=== PATIENT | female | born 1970 | race Caucasian/White ===

== ENCOUNTER 2019-10-31 19:25 | IRF | payer OTHER, SELFPAY ==
--- NOTE | ~2019-10-31 | XR_ITS ---
EXAMINATION: XR hand RT min 3V DATE: 11/02/2019 15:00 INDICATION: Right hand pain. Discoloration. TECHNIQUE: 3 views of right hand were obtained. COMPARISON: None. FINDINGS: Bone alignment is normal. No fracture. There is mild osteoarthritis of second and third met acarpophalangeal joints, first interphalangeal joint, and second through fifth distal interphalangeal joints. IMPRESSION: 1. Mild polyarticular osteoarthritis. Reviewed, dictated and finalized at location A.
--- NOTE | ~2019-10-31 | XR_ITS ---
EXAMINATION: XR forearm LT 2V DATE: 11/02/2019 15:00 INDICATION: Left forearm pain. TECHNIQUE: 2 views of left forearm were obtained. COMPARISON: None. FINDINGS: There is a transverse fracture of the junction of radial head and neck in near-anatomic ali gnment. Joint spaces are normal. There is no elbow joint effusion. IMPRESSION: 1. Nondisplaced transverse fracture of the junction of radial head and neck. 2. Elbow joint effusion. Reviewed, dictated and finalized at location A.
--- NOTE | ~2019-10-31 | XR_ITS ---
EXAMINATION: XR ankle LT 2V DATE: 11/02/2019 15:00 INDICATION: Left ankle edema and pain. TECHNIQUE: 2 views of left ankle were obtained. COMPARISON: None. FINDINGS: There is an avulsion fracture of the distal tip of the fibula. There is well-corticated het erotopic ossification distal to medial and lateral malleoli, likely chronic. Joint spaces are normal. There is ankle soft tissue swelling. IMPRESSION: 1. Age-indeterminant fracture of distal tip of the fibula. Reviewed, dictated and finalized at location A.
--- NOTE | ~2019-10-31 | US_ITS ---
EXAMINATION: US art doppler w press UE BI DATE: 11/02/2019 14:45 INDICATION: Discoloration of the right fingers. TECHNIQUE: Segmental pressures and plethysmographic and Doppler waveforms of the upper extremity isabella israel were obtained. COMPARISON: None. FINDINGS: Right and left brachial artery pressures of 108 mm Hg and 120 mm Hg, respectively, are concordant (no rmal difference <= 30 mmHg). The right finger:brachial systolic pressure ratio is 0.57 (normal > 0.8) . Segmental pressure gradients are increased between the upper arm and wrist. Arterial Doppler wavefo hitesh are noisy at the wrist (normal upstroke < 0.2 s). The left finger:brachial systolic pressure ratio is 0.55. Segmental pressure gradients are increased between the upper arm and wrist. Arterial Doppler waveforms demonstrate normal upstroke. IMPRESSION: 1. Bilateral arterial occlusive disease. Reviewed, dictated and finalized at location A.
--- NOTE | 2019-10-31 19:46 | ADMGEN ---
This patient, Caren Sainz, was admitted to [facility] Room 221-01 at 1925 . Patient/family oriented to hospital policies and general routines including ID bracelet, bed and alarms, visiting hours, pain management, procedures, bathroom and other care routines, personal items, smoking policy, room service/diet, and visiting hours. Valuables list has been completed. Information on how to activate the Rapid Response Team has been discussed. Patient/Family are encouraged to report perceived risks to care and to ask questions if they do not understand what they are told or what they should do.
[2019-10-31 22:00] VITALS: BP 123/46; PULSE 60; RESP 21; TEMP 36.2; O2SAT 100; BMI 34.0
[2019-10-31] MEDS: QUEtiapine FUMARATE 100 MG TABLET 300 MG PO (22:00)
[2019-10-31] MEDS: FAMOTIDINE 20 MG TABLET BY MOUTH (22:33)
[2019-10-31] MEDS: clonazePAM 0.5 MG TABLET 1 MG PO (22:55)
[2019-11-01 05:37] LABS: Basophils Absolute Auto 0.1 K/mm3 (0.0-0.1); Basophils Percent Auto 0.4 % (0.2-1.2); Eosinophils Absolute Auto 0.3 K/mm3 (0-0.3); Eosinophils Percent Auto 1.8 % (0-4.4); Hematocrit 31.5 % (37.0-47.0); Hemoglobin 9.9 g/dL (12.0-15.0); Immature Granulocyte Absolute 0.11 K/mm3 (0.00-0.031); Immature Granulocyte Percent A 0.8 % (0-0.5); Immature Platelet Fraction Pct 9.4 % (0.9-11.2); Lymphocytes Absolute Auto 2.61 K/mm3 (0.9-3.2); Lymphocytes Percent Auto 18.1 % (18.3-44.2); Mean Corpuscular HGB Conc 31.4 g/dl (32-36); Mean Corpuscular Hemoglobin 29.5 pg (26-34); Mean Corpuscular Volume 93.8 fl (80-100); Monocytes Absolute Auto 0.7 K/mm3 (0.1-0.6); Monocytes Percent Auto 5.1 % (2.6-8.5); Neutrophils Absolute Auto 10.6 K/mm3 (1.3-6.7); Neutrophils Percent Auto 73.8 % (45.5-73.1); Red Blood Count 3.36 M/mm3 (4.2-5.4); Red Cell Distribution Width 15.2 % (11.5-14.5); White Blood Count 14.4 K/mm3 (4.5-10.0)
[2019-11-01] MEDS: QUEtiapine FUMARATE 25 MG TABLET 50 MG PO ×2 (05:38→14:02)
[2019-11-01] MEDS: clonazePAM 0.5 MG TABLET 1 MG PO ×3 (05:39→20:08)
[2019-11-01 05:48] LABS: Blood Urea Nitrogen 7 mg/dL (7-17); Calcium 8.6 mg/dL (8.4-10.2); Carbon Dioxide 28 mmol/L (22-30); Chloride 97 mmol/L (98-107); Estimated CRCL calculation 93 ml/min; Estimated Glomerular Filt Rate > 60; Glucose 99 mg/dL (65-105); Potassium 3.6 mmol/L (3.4-5.0); Sodium 133 mmol/L (137-145)
[2019-11-01 05:59] VITALS: BP 118/55; PULSE 85; RESP 18; TEMP 36.9; O2SAT 95
[2019-11-01 06:15] LABS: Large Platelets Present; Platelet Clumps Present; Platelet Estimate Adequate (Adequate)
[2019-11-01 09:10] VITALS: PULSE 86; RESP 20; O2SAT 96
[2019-11-01] MEDS: ENOXAPARIN 40 MG/0.4 ML SYRINGE SUB-Q (09:22)
[2019-11-01] MEDS: ATORVASTATIN 40 MG TABLET PO (09:22)
[2019-11-01] MEDS: DULoxetine HCL 60 MG CAPSULE.DR PO (09:22)
[2019-11-01] MEDS: CHOLECALCIFEROL 1,000 UNIT TABLET 1000 UNITS PO (09:22)
[2019-11-01] MEDS: FAMOTIDINE 20 MG TABLET BY MOUTH ×2 (09:22→20:08)
--- NOTE | 2019-11-01 10:30 | WPDREHABHP ---
H&P: HPI History of Present Illness Chief complaint: Critical ischemia Narrative: Caren Sainz is a 49 year old femaleHISTORY OF PRESENT ILLNESS: The patient's primary rehab impairment category is 54-wuhpxzqkqg-aapap extremity The etiologic diagnosis is right lower extremity critical limb ischemia I saw this patient [id number] on November 01, 2019 at 10:30 a.m. The patient is a 49-year-old woman with a past medical history of bipolar disorder who presented to [facility] on October 21, 2019 with hallucinations and bilateral lower extremity pain worse on the right. She was admitted the hospital and workup revealed leukocytosis of 28,000 with urinary tract infection. The patient was started on IV antibiotics. The venous Doppler study was ordered for the bilateral lower extremity pain. There was evidence of right femoral artery occlusion as well as the right popliteal and tibial vessels. She underwent catheterization lab on October 24, 2019 where she had CVP line placement, aortofemoral angiography and sedated a right femoral angiography with catheter placement a for lytic therapy with tPA. She was taken to ICU and return to the pit laborer on October 25, 2019 for a 2nd look. Vascular surgery was consulted. Revascularization was unsuccessful at the patient underwent right above the knee amputation October 26, [address] Eusebio Escoto. Postoperative the patient has experienced acute postoperative pain and acute blood-loss anemia. Hospitalization has been significant for urinary tract infection treated with levofloxacin acute metabolic encephalopathy thought to be related to the UTI (resolved) bilateral lower extremity edema (improved ) and leukocytosis (trending down) she will be discharged to us on Lovenox for DVT prophylaxis The patient has not traveled outside the [place] and has not been exposed to Coronavirus as best I can tell and she denies any upper or lower extremity symptoms Therapy was initiated at the acute care facility and the patient transferred to us from [facility] on October 31, 2019 on FALLS OR SURGERIES: The patient has had major surgeries in the 100 days prior to admission. They had falls in the past year. They had falls with injury in the past year. PAST MEDICAL HISTORY: allergic rhinitis /a fever, cellulitis, hyperlipidemia, pneumonia, bronchitis, colitis, menorrhagia, ectopic , lumbar disc disease with chronic back pain, headaches, migraines, peripheral neuropathy, anxiety, bipolar disorder, depression PAST SURGICAL HISTORY: vaginal delivery spine surgery in 2008 SOCIAL HISTORY: patient lives with a roommate in a 1 level home with the basement. There are 2 steps to enter to the front door and 14 steps from the basement. The patient was completely independent prior with no assistive device. The roommate is able to assist the patient if needed. The patient has fallen in the past 6 months and had major surgery this admission. Current everyday smoker. THC use daily FAMILY HISTORY: first-degree relatives hypertension PRIOR LEVEL OF FUNCTION: Eating was INDEPENDENT Oral Care was INDEPENDENT Toileting Hygiene was INDEPENDENT Shower/Bathing was INDEPENDENT Upper Body Dressing was INDEPENDENT Lower Body Dressing was INDEPENDENT Donning/Cannon Ball Footwear was INDEPENDENT Rolling Left and Right was INDEPENDENT Sit to Lying was INDEPENDENT Lying to Sitting was INDEPENDENT Sit to Stand was INDEPENDENT Bed to Chair Transfers was INDEPENDENT Toilet Transfers was INDEPENDENT Walking was INDEPENDENT 999 feet with NO DEVICE Wheelchair Mobility was NOT APPLICABLE PRIOR TO ADMISSION Stairs were INDEPENDENT CURRENT LEVEL OF FUNCTION: Eating was SET UP ONLY Oral Care was SET UP ONLY Toileting Hygiene was Shower/Bathing was Upper Body Dressing was Lower Body Dressing was Donning/Cannon Ball Footwear was Rolling Left and Right was Sit to Lying was Lying to Sitting was
[2019-11-01] MEDS: ACETAMINOPHEN 325 MG TABLET 650 MG PO ×2 (11:15→16:02)
[2019-11-01 13:00] VITALS: BMI 34.0
--- NOTE | 2019-11-01 13:30 | PCNSR ---
On 11/01/19, the student, Mikal Salcedo, provided care and completed [facility] documentation on this patient. I have reviewed the student's documentation and agree with the findings.
[2019-11-01 14:00] VITALS: BP 126/69; PULSE 72; RESP 20; TEMP 36.3; O2SAT 100
--- NOTE | 2019-11-01 16:09 | RPD ---
INDIVIDUALIZED PLAN OF CARE FOR Caren Sainz Brief Synthesis of Pre-Admission Screen, Post-Admission Evaluation and Therapy Evaluations: The patient presents to rehab with a right lower extremity critical limb ischemia s/p right AKA. Comorbidities include acute blood loss anemia, acute postoperative pain, leukocytosis, acute metabolic encephalopathy, urinary tract infection, Bipolar 1 disorder, depression, anxiety, hyperlipidemia, and lumbar degenerative disc disease. The patient?s needs will be best met in an intensive program vs. at a lower level of care. The patient requires physician services for medical oversight, management of post-op complications in the setting of present comorbidities, and pain management. Post-op complications have included acute blood loss anemia, leukocytosis, urinary tract infection, and acute postoperative pain. The patient requires nursing services for anticoagulation therapy, DVT prophylactics, infection protection, medication management and education, pressure relief, and wound care. Deficits include: ADLs, Balance, Endurance, Family Training/Education, Mobility, Pain Management, ROM, Safety, Strength, and Transfers. Print Project Manager/Case Management for: Discharge Planning and Patient/Family Counseling Physical Therapy: 5 days per week for 90 minutes. Treatments may include: Therapeutic Exercise, Gait Training, Neuromuscular Re-education, Transfer Training, Community Reintegration, Bed Mobility, Patient/Family Education, Wheelchair Mobility Group Therapy/Concurrent Therapy Rationales: -Improve attention span during functional activities in a distracted environment. -Enhance problem solving and/or adequate judgment skills during functional activities in a distracted environment. -Promote increased safety awareness in a distracted environment to reduce fall risk with functional tasks, transfers, and ambulation to allow a more safe, self-sufficient return to the home environment. -Improve dynamic balance skills to promote safety and independence with functional activities in a distracted environment for maximum gain. Occupational Therapy: 5 days per week for 90 minutes. Treatments may include: Therapeutic Exercise, Therapeutic Activity, Cognitive Training, Self-Care Transfer Training, Community Reintegration, Home Management, Patient/Family Education, Wheelchair Mobility Training, Energy Conservation Training Group Therapy/Concurrent Therapy Rationales: -Allow therapist to observe and teach generalization and carry-over of skills learned in individual therapy. -Enhance problem solving and sequencing skills during therapeutic activities in a distracted environment. -Promote increased safety awareness in a realistic setting to reduce fall risk with functional tasks due to visual and verbal distractions. -Increase functional level with ADLs, ADL transfers and use of adaptive equipment through therapeutic activities with others while promoting safety to allow a more safe, self-sufficient return home. Medical Prognosis: Good Anticipated Length of Stay: 10 days Rehab Goals: Eating Goal: 06-Independent Oral Hygiene Goal: 06-Independent Toileting Hygiene Goal: 06-Independent Shower/Bathe Self Goal: 06-Independent Upper Body Dressing Goal: 06-Independent Lower Body Dressing Goal: 06-Independent Putting On/Taking Off Footwear Goal: 06-Independent Rolling Left and Right Goal: 06-Independent Sit to Lying Goal: 06-Independent Lying to Sitting on Side of Bed Goal: 06-Independent Sit to Stand Goal: 06-Independent Chair/Xye-ps-Pahav Transfer Goal: 06-Independent Toilet Transfer Goal: 06-Independent Car Transfer Goal: 06-Independent Walk 10' Goal: 06-Independent Walk 50' with Two Turns Goal: 06-Independent Walk 150' Goal: 04-Supervision or Touching Assistance Walk 10' on Uneven Surface Goal: 04-Supervision or Touching Assistance 1 Step (Curb) Goal: 04-Supervision or Touching Assistance 4 Steps Goal: 04-Supervision or Touching Assistance
[2019-11-01] MEDS: QUEtiapine FUMARATE 100 MG TABLET 300 MG PO (20:07)
[2019-11-01 22:00] VITALS: BP 135/53; PULSE 70; RESP 18; TEMP 36.6; O2SAT 97
[2019-11-02] MEDS: clonazePAM 0.5 MG TABLET 1 MG PO ×3 (05:43→20:26)
[2019-11-02] MEDS: QUEtiapine FUMARATE 25 MG TABLET 50 MG PO ×2 (05:44→13:46)
[2019-11-02 06:00] VITALS: BP 133/50; PULSE 71; RESP 16; TEMP 36.6; O2SAT 96
[2019-11-02] MEDS: CHOLECALCIFEROL 1,000 UNIT TABLET 1000 UNITS PO (08:33)
[2019-11-02] MEDS: ATORVASTATIN 40 MG TABLET PO (08:33)
[2019-11-02] MEDS: ENOXAPARIN 40 MG/0.4 ML SYRINGE SUB-Q (08:34)
[2019-11-02] MEDS: FAMOTIDINE 20 MG TABLET BY MOUTH ×2 (08:34→20:26)
[2019-11-02] MEDS: DULoxetine HCL 60 MG CAPSULE.DR PO (08:34)
[2019-11-02 14:00] VITALS: BP 116/53; PULSE 76; RESP 20; TEMP 36.3; O2SAT 100
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
[2019-11-02] MEDS: QUEtiapine FUMARATE 100 MG TABLET 300 MG PO (20:26)
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
[2019-11-02 21:48] VITALS: BP 116/52; PULSE 94; RESP 18; TEMP 37.2; O2SAT 94
[2019-11-03 05:30] VITALS: BP 129/63; PULSE 70; RESP 18; TEMP 36.4; O2SAT 95
[2019-11-03 05:43] LABS: Basophils Absolute Auto 0.1 K/mm3 (0.0-0.1); Basophils Percent Auto 0.6 % (0.2-1.2); Eosinophils Absolute Auto 0.3 K/mm3 (0-0.3); Eosinophils Percent Auto 3.6 % (0-4.4); Hemoglobin 9.1 g/dL (12.0-15.0); Immature Granulocyte Absolute 0.04 K/mm3 (0.00-0.031); Immature Granulocyte Percent A 0.5 % (0-0.5); Lymphocytes Absolute Auto 2.96 K/mm3 (0.9-3.2); Lymphocytes Percent Auto 34.8 % (18.3-44.2); Mean Corpuscular HGB Conc 31.4 g/dl (32-36); Mean Corpuscular Hemoglobin 29.6 pg (26-34); Mean Corpuscular Volume 94.5 fl (80-100); Mean Platelet Volume 9.7 fl (7.4-10.4); Monocytes Absolute Auto 0.7 K/mm3 (0.1-0.6); Monocytes Percent Auto 8.7 % (2.6-8.5); Neutrophils Absolute Auto 4.4 K/mm3 (1.3-6.7); Neutrophils Percent Auto 51.8 % (45.5-73.1); Platelet Count Result 519 k/mm3 (150-375); Red Blood Count 3.07 M/mm3 (4.2-5.4); Red Cell Distribution Width 15.5 % (11.5-14.5); White Blood Count 8.5 K/mm3 (4.5-10.0)
[2019-11-03 05:50] LABS: Alanine Aminotransferase 22 U/L (4-35); Albumin Level 3.3 g/dL (3.5-5.1); Alkaline Phosphatase 98 U/L (38-126); Aspartate Amino Transferase 24 U/L (14-36); Bilirubin,Total 0.3 mg/dL (0.2-1.3); Blood Urea Nitrogen 7 mg/dL (7-17); Calcium 8.7 mg/dL (8.4-10.2); Carbon Dioxide 29 mmol/L (22-30); Chloride 98 mmol/L (98-107); Estimated CRCL calculation 82 ml/min; Estimated Glomerular Filt Rate > 60; Glucose 101 mg/dL (65-105); Potassium 3.6 mmol/L (3.4-5.0); Sodium 134 mmol/L (137-145)
[2019-11-03] MEDS: QUEtiapine FUMARATE 25 MG TABLET 50 MG PO ×2 (06:21→13:26)
[2019-11-03] MEDS: clonazePAM 0.5 MG TABLET 1 MG PO ×2 (06:22→13:26)
--- NOTE | 2019-11-03 07:00 | PCOTNOTE ---
Attempted to see Patient at this time this A.M. Per RN, do not see Patient until we get updated orders from the doctor. Patient has a decline in medical status, and may need additional services.
[2019-11-03] MEDS: ATORVASTATIN 40 MG TABLET PO (09:08)
[2019-11-03] MEDS: DULoxetine HCL 60 MG CAPSULE.DR PO (09:08)
[2019-11-03] MEDS: CHOLECALCIFEROL 1,000 UNIT TABLET 1000 UNITS PO (09:08)
[2019-11-03] MEDS: FAMOTIDINE 20 MG TABLET BY MOUTH (09:09)
[2019-11-03] MEDS: ENOXAPARIN 40 MG/0.4 ML SYRINGE SUB-Q (09:09)
--- NOTE | 2019-11-03 10:52 | PCPTNOTE ---
Caren Sainz was evaluated for a wheeled walker on 11/03/2019 by this physical therapist assistant store manager trainee. The wheeled walker will resolve patient's mobility limitations and will be used for ADL's within the home. The patient can safely use the wheeled walker. ?The wheeled walker will resolve the patient?s mobility deficits, including impaired balance, strength and endurance.
[2019-11-03 14:00] VITALS: BP 116/57; PULSE 88; RESP 20; TEMP 36.5; O2SAT 100
--- NOTE | 2019-11-06 15:25 | PM.DS ---
DS: Admitting Diagnosis Admitting Diagnosis Admitting Diagnosis: Other disorder of circulatory system DS: Discharge Diagnosis Discharge Diagnosis (1) Anxiety and depression: Code(s): F41.9 - Anxiety disorder, unspecified; F32.9 - Major depressive disorder, single episode, unspecified Status: Chronic (2) Peripheral neuropathy: Code(s): G62.9 - Polyneuropathy, unspecified Status: Chronic (3) Hyperlipidemia: Code(s): E78.5 - Hyperlipidemia, unspecified Status: Chronic (4) Peripheral artery disease: Code(s): I73.9 - Peripheral vascular disease, unspecified Status: Acute (5) Chronic low back pain: Code(s): M54.5 - Low back pain; G89.29 - Other chronic pain Status: Acute (6) Migraines: Code(s): G43.909 - Migraine, unspecified, not intractable, without status migrainosus Status: Acute (7) Peripheral vascular disease: Code(s): I73.9 - Peripheral vascular disease, unspecified Status: Acute (8) Tobacco abuse: Code(s): Z72.0 - Tobacco use Status: Acute (9) Injury of left ankle: Code(s): S99.912A - Unspecified injury of left ankle, initial encounter Status: Acute (10) Injury of left upper arm: Code(s): S49.92XA - Unspecified injury of left shoulder and upper arm, initial encounter Status: Acute (11) DVT prophylaxis: Code(s): Z29.9 - Encounter for prophylactic measures, unspecified Status: Acute (12) Bipolar disorder: Code(s): F31.9 - Bipolar disorder, unspecified Status: Acute (13) Critical ischemia of extremity with history of revascularization of same extremity: Code(s): I99.8 - Other disorder of circulatory system; Z95.9 - Presence of cardiac and vascular implant and graft, unspecified Status: Acute (14) History of aorto-femoral bypass: Code(s): Z95.828 - Presence of other vascular implants and grafts Status: Acute DS: Summary Hospital Course Reason for hospitalization: the patient was admitted with multiple medical issues as mentioned above she did come with the evidence of the ischemic disease of her hand which she was telling us that it was present when she had the surgery done here we did the arterial Doppler and found peripheral vascular disease of the upper extremities also Dr. Echeverria went ahead and called Dr. nunn who accepted the patient and the patient was transferred to the vascular surgeon who had operated on her lower extremities Hospital Course: beside mentioned above the hospital course was unremarkable Time Spent with Patient Time attestation: Total time spent providing and/or coordinating discharge services: Exam Const: General: comfortable and no acute distress HENMT: General nose exam: Normal nares present Mouth: Yes dry mucous membranes Eyes: General: appearance normal, both eyes and all related structures Neck: Neck: supple and no JVD Resp: Effort & Inspection: normal respiratory effort Auscultation: clear to auscultation bilaterally Cardio: Rate: regular rate Rhythm: regular rhythm GI: GI Palp: Yes Soft to palpation Auscultation: normal bowel sounds Skin: General skin exam: normal color and no rashes or lesions noted Neuro: Other: right above the knee amputation mentally alert and oriented cranial examination normal and also the evidence of the ski me of the right hand which was present even before she was transferred to us any even before she has the right above the knee amputation Extrem: Other: ischemic fingers of the right hand and also evidence of the right [id number] amputation Psych: Mental Status: mental status grossly normal Discharge Plan Discharge Attending physician on discharge: Tod Cobos Consulting providers: Fozia Rebolledo Discharging Clinician: Shon Vincent Anticipated Discharge Date/Time: 11/03/19 11:45 Patient Disposition: Acute Care Hospital Activity: other - see di
== END 2019-11-03 18:30 | disposition short-term general hospital (02) | DRG 560 ==
PROVIDERS: Nurse Practitioner; Admitting Provider Psychiatry & Neurology Neurology; Visit Provider Psychiatry & Neurology Neurology
DX: Z47.81 Encounter for orthopedic aftercare following surgical amputation (principal); D62 Acute posthemorrhagic anemia; Z89.611 Acquired absence of right leg above knee; I70.298 Other atherosclerosis of native arteries of extremities, other extremity; L89.159 Pressure ulcer of sacral region, unspecified stage; S82.492D Other fracture of shaft of left fibula, subsequent encounter for closed fracture with routine healing; S52.125D Nondisplaced fracture of head of left radius, subsequent encounter for closed fracture with routine healing; R23.4 Changes in skin texture; F31.9 Bipolar disorder, unspecified; F41.8 Other specified anxiety disorders; E78.5 Hyperlipidemia, unspecified; M51.36 Other intervertebral disc degeneration, lumbar region; G89.29 Other chronic pain; M54.5 Low back pain; G43.909 Migraine, unspecified, not intractable, without status migrainosus; F12.90 Cannabis use, unspecified, uncomplicated; F17.210 Nicotine dependence, cigarettes, uncomplicated; M19.041 Primary osteoarthritis, right hand; Z95.9 Presence of cardiac and vascular implant and graft, unspecified; V18.0XXD Pedal cycle driver injured in noncollision transport accident in nontraffic accident, subsequent encounter
CPT/HCPCS: 36415; 73090; 73130; 73600; 80048; 80053; 85025; 85055; 93923; 97110; 97116; 97161; 97166; 97530; 97535; 97542; A9270; J1650

== ENCOUNTER 2019-11-16 18:20 | IRF | payer OTHER, SELFPAY ==
--- NOTE | 2019-11-16 18:40 | PC.NURSE ---
This patient, Caren Sainz, was admitted to [facility] Room 223-02. Patient/family oriented to hospital policies and general routines including ID bracelet, bed and alarms, visiting hours, pain management, procedures, bathroom and other care routines, personal items, smoking policy, room service/diet, and visiting hours. Valuables list has been completed. Information on how to activate the Rapid Response Team has been discussed. Patient/Family are encouraged to report perceived risks to care and to ask questions if they do not understand what they are told or what they should do.
[2019-11-16 18:49] VITALS: BMI 30.7
[2019-11-16 18:50] VITALS: BP 116/54; PULSE 68; RESP 20; TEMP 36; O2SAT 97
[2019-11-16 20:19] VITALS: BP 135/39; PULSE 65; RESP 18; TEMP 35.9; O2SAT 99
[2019-11-16] MEDS: QUEtiapine FUMARATE 100 MG TABLET 300 MG PO (20:25)
[2019-11-16] MEDS: APIXABAN 5 MG TABLET PO (20:25)
[2019-11-16] MEDS: FAMOTIDINE 20 MG TABLET BY MOUTH (20:25)
[2019-11-16] MEDS: DULoxetine HCL 60 MG CAPSULE.DR PO (22:13)
[2019-11-17 04:48] LABS: Basophils Absolute Auto 0.1 K/mm3 (0.0-0.1); Basophils Percent Auto 0.7 % (0.2-1.2); Eosinophils Absolute Auto 0.4 K/mm3 (0-0.3); Eosinophils Percent Auto 5.1 % (0-4.4); Hematocrit 31.7 % (37.0-47.0); Hemoglobin 9.9 g/dL (12.0-15.0); Immature Granulocyte Absolute 0.02 K/mm3 (0.00-0.031); Immature Granulocyte Percent A 0.3 % (0-0.5); Lymphocytes Absolute Auto 2.66 K/mm3 (0.9-3.2); Lymphocytes Percent Auto 36.7 % (18.3-44.2); Mean Corpuscular HGB Conc 31.2 g/dl (32-36); Mean Corpuscular Hemoglobin 28.5 pg (26-34); Mean Corpuscular Volume 91.4 fl (80-100); Mean Platelet Volume 9.6 fl (7.4-10.4); Monocytes Absolute Auto 0.6 K/mm3 (0.1-0.6); Monocytes Percent Auto 8.1 % (2.6-8.5); Neutrophils Absolute Auto 3.6 K/mm3 (1.3-6.7); Neutrophils Percent Auto 49.1 % (45.5-73.1); Platelet Count Result 272 k/mm3 (150-375); Red Blood Count 3.47 M/mm3 (4.2-5.4); Red Cell Distribution Width 14.4 % (11.5-14.5); White Blood Count 7.3 K/mm3 (4.5-10.0)
[2019-11-17 05:02] LABS: Anion Gap 11.5 mmol/L (7-16); Blood Urea Nitrogen 9 mg/dL (7-17); Calcium 9.4 mg/dL (8.4-10.2); Carbon Dioxide 27 mmol/L (22-30); Chloride 101 mmol/L (98-107); Estimated CRCL calculation 78 ml/min; Estimated Glomerular Filt Rate > 60; Glucose 113 mg/dL (65-105); Potassium 3.5 mmol/L (3.4-5.0); Sodium 136 mmol/L (137-145)
[2019-11-17] MEDS: QUEtiapine FUMARATE 25 MG TABLET 50 MG PO ×2 (05:46→14:15)
[2019-11-17 06:00] VITALS: BP 143/49; PULSE 70; RESP 18; TEMP 36.6; O2SAT 98
[2019-11-17] MEDS: APIXABAN 5 MG TABLET PO ×2 (09:09→20:13)
[2019-11-17] MEDS: DULoxetine HCL 60 MG CAPSULE.DR PO ×2 (09:09→20:13)
[2019-11-17] MEDS: ATORVASTATIN 40 MG TABLET PO (09:09)
[2019-11-17] MEDS: FAMOTIDINE 20 MG TABLET BY MOUTH ×2 (09:09→20:13)
[2019-11-17] MEDS: CHOLECALCIFEROL 1,000 UNIT TABLET 1000 UNITS PO (09:09)
[2019-11-17] MEDS: clonazePAM 0.5 MG TABLET 1 MG PO ×3 (09:09→17:26)
[2019-11-17 14:00] VITALS: BP 138/56; PULSE 64; RESP 20; TEMP 36.8; O2SAT 98
--- NOTE | 2019-11-17 14:21 | REHAB_ITS ---
DATE OF SERVICE: 11/17/2019 The patient's primary rehab impairment category is amputation of lower extremity, etiological diagnosis right lower extremity critical limb ischemia. The patient was seen [id number] on 11/17/2019 at 11 a.m. HISTORY OF PRESENT ILLNESS: A 49-year-old, right-handed female, presented to [facility] Emergency Room on 10/21/2019 with hallucination and bilateral lower extremity pain, worse on the right side. She was admitted to the hospital and workup revealed leukocytosis with urinary tract infection. She was started on IV antibiotics. A venous Doppler study was ordered for the bilateral lower extremity pain. There was evidence of right femoral artery occlusion as well as the right popliteal and tibial artery occlusion. She was sent to [facility] on 10/24/2019, where she had a CVP line placement and aortofemoral angiography was carried out with catheter placement for lytic therapy with tPA. She was taken to ICU and returned to [facility] on 10/25/2019 for second-look. Vascular Surgery was consulted. Revascularization was unsuccessful, and the patient underwent a right above knee amputation on 10/26/[address] Eusebio Escoto. Postoperatively, the patient has experienced acute postoperative pain and acute blood loss anemia. Hospitalization had been significant for urinary tract infection with levofloxacin, acute metabolic encephalopathy thought to be related to the UTI and bilateral lower extremity edema, which was improving and leukocytosis, which was definitely downtrending. She was discharged to rehab on 10/31/2019. While at the rehab, the patient was noted to have discoloration to her fingers. A Doppler study was performed on 11/02/2019, that revealed peripheral vascular disease of the right upper extremity and bilateral arterial occlusive disease. She was discharged from rehab to [facility] on 11/03/2019, with ischemic and gangrenous changes of right 1st and 4th finger and right thumb demarcating. Vascular Surgery was consulted, and the patient underwent right extremity arteriography. On 11/05/2019, the patient underwent a right brachial, radial, and ulnar thrombectomy and repair of the right brachial artery with a bovine pericardial patch. Her hand remained well perfused following this procedure. On 11/10/2019, she underwent a disarticulation of the right 4th PIP with Dr. Stacy. Postoperatively, she had experienced acute postoperative pain, acute blood loss resulting in anemia, but her hand was well perfused and healing was well. She was discharged to rehab on apixaban and admitted here on 11/15/2019. The patient has not traveled outside the [place] or had contact with someone who is ill that has traveled outside the [place] in the past 21 days. The patient has had no travel to an area of the [place] that is experiencing known transmission of the coronavirus and has not had close personal contact with anyone that has. The patient does not have a fever, has not been experiencing any lower respiratory illness symptoms. Therapy was initiated at the acute care facility and the patient was transferred to us from [facility] on 11/16/2019. SURGERY OR FALL: The patient has had major surgery in the 100 days prior to admission. The patient has falls in the past year. The patient has fall with injury in the past year as well. PAST MEDICAL HISTORY: Allergic rhinitis, hay fever, cellulitis, hyperlipidemia, pneumonia, bronchitis, colitis, menorrhagia, ectopic , lumbar disk disease with chronic back pain, headaches, migraines, peripheral neuropathy, anxiety, and bipolar depression. PAST SURGICAL HISTORY: Vaginal delivery, spine surgery in 2019, right above-knee amputation 10/17/2019. SOCIAL HISTORY: The patient lives with her roommate in a two-story h
--- NOTE | 2019-11-17 14:36 | WPDCN ---
Assessment and Plan Assessment and plan (1) Peripheral artery disease: Code(s): I73.9 - Peripheral vascular disease, unspecified Status: Acute (2) Tobacco abuse: Code(s): Z72.0 - Tobacco use Status: Acute (3) Critical ischemia of extremity with history of revascularization of same extremity: Onset Date: Unknown Code(s): I99.8 - Other disorder of circulatory system; Z95.9 - Presence of cardiac and vascular implant and graft, unspecified Status: Acute Assessment and Plan: Ischemic changes to right 1st, 4th and 5th digits. Tissue necrosis with dry eschar to right thumb pad. S/P recent amputation of the right 4th finger, healing satisfactorily. S/P angioplasty to right brachial and radial and ulnar arteries with increased inflow. Tolerable ischemic limb pain. . Additional Plan Will try Nitro Bid to thumb. Follow while in [facility]. HPI Data of Consult Date/Time: 11/17/19 14:36 Requesting Physician: Tod Cobos MD Primary Care Provider: Collins Hicks, Consult Narrative Narrative: Caren Sainz is a pleasant, informative 49 year old female transferred to the [facility] for rehabilitation after undergoing a right AKA by Dr. Escoto at [facility]. the cora have been removed and the site looks excellent. Her 2nd problem relates to ischemia of the right upper extremity. approximately 2 weeks ago she underwent embolectomy of the right brachial and radial and ulnar arteries by Dr. Escoto. This was necessary when she developed ischemic changes to her right thumb, ring finger and small finger. These are distal changes. The ring finger however was the worst and she subsequently underwent an amputation through the proximal interphalangeal joint by Dr. Stacy three or 4 days ago. That site still has stitches. The volar flap is slightly dusky. There is a 3 mm brown eschar on the pad of the 5th finger. There is a 13 x 12 mm hard black eschar on the pad of the thumb. The patient is not aware that anything about her hand has changed for the better following the embolectomy. However pulses are dopplerable now at the radial and ulnar wrist. Her hand hurts and she is particularly tender at the thumb eschar. There are splinter hemorrhages at several nails. The hand has normal pink skin color. The pain she senses seems to be ischemic pain. It does not feel cold to touch. She feels better if she keeps it warm under her blanket. She has been a smoker up until approximately 30 days ago around the time of her right AKA amputation. There was no arterial study as far she knows regarding her right leg. She said she had a lot of pain in the leg. There was an arterial Doppler and angiogram of the right upper extremity indicating occlusion of the arterial supply between the arm and the wrist. [facility] Past Medical History Medical History (Updated 11/17/19 @ 14:56 by Junior Arvizu MD) Anxiety and depression Bipolar disorder Chronic low back pain Critical ischemia of extremity with history of revascularization of same extremity (Unknown) DVT prophylaxis Hyperlipidemia Migraines Peripheral neuropathy Peripheral vascular disease Tobacco abuse Surgical History Surgical History (Updated 11/02/19 @ 20:47 by Fozia Rebolledo NP) H/O Spinal surgery ACDF Social History Social History Smoking packs per day: 1 Smoking cigarettes per day: 20.0 Smoking status: Current every day smoker Tobacco type: cigarettes Second hand tobacco smoke exposure: Yes Alcohol intake: never Substance use: current Substance use type: marijuana, sedatives, opiates and prescription drug Gender identity (if verbalized by the patient): Female Spiritual care concerns: No Meds Home Medications and Allergies Home Medications Medication Instructions Recorded Confirmed Type acetaminophen [Tylenol] 650 mg PO Q4H PRN 10/31/19
[2019-11-17] MEDS: NITROGLYCERIN OINTMENT 1 INCH DOSE 0.5 INCH TRANSDERM (17:26)
[2019-11-17] MEDS: QUEtiapine FUMARATE 100 MG TABLET 300 MG PO (20:13)
[2019-11-17 20:58] VITALS: BP 102/56; PULSE 78; RESP 18; TEMP 36.2; O2SAT 92
[2019-11-18 05:25] VITALS: BP 106/53; PULSE 73; RESP 18; TEMP 35.7; O2SAT 97
[2019-11-18] MEDS: QUEtiapine FUMARATE 25 MG TABLET 50 MG PO ×2 (06:29→14:27)
[2019-11-18] MEDS: NITROGLYCERIN OINTMENT 1 INCH DOSE 0.5 INCH TRANSDERM ×4 (06:32→17:37)
[2019-11-18] MEDS: CHOLECALCIFEROL 1,000 UNIT TABLET 1000 UNITS PO (08:37)
[2019-11-18] MEDS: DULoxetine HCL 60 MG CAPSULE.DR PO ×2 (08:37→20:26)
[2019-11-18] MEDS: ATORVASTATIN 40 MG TABLET PO (08:37)
[2019-11-18] MEDS: APIXABAN 5 MG TABLET PO ×2 (08:37→20:27)
[2019-11-18] MEDS: FAMOTIDINE 20 MG TABLET BY MOUTH ×2 (08:38→20:26)
[2019-11-18] MEDS: clonazePAM 0.5 MG TABLET 1 MG PO ×3 (08:40→17:37)
[2019-11-18 14:00] VITALS: BP 94/60; PULSE 60; RESP 20; TEMP 36.3; O2SAT 98
[2019-11-18 20:15] VITALS: BP 106/52; PULSE 80; RESP 18; TEMP 36.4; O2SAT 100
[2019-11-18] MEDS: QUEtiapine FUMARATE 100 MG TABLET 300 MG PO (20:32)
[2019-11-19 06:00] VITALS: BP 118/63; PULSE 86; RESP 18; TEMP 36.3; O2SAT 96
[2019-11-19] MEDS: QUEtiapine FUMARATE 25 MG TABLET 50 MG PO ×2 (06:10→13:02)
[2019-11-19] MEDS: NITROGLYCERIN OINTMENT 1 INCH DOSE 0.5 INCH TRANSDERM ×4 (06:10→17:44)
[2019-11-19] MEDS: CHOLECALCIFEROL 1,000 UNIT TABLET 1000 UNITS PO (09:10)
[2019-11-19] MEDS: clonazePAM 0.5 MG TABLET 1 MG PO ×3 (09:10→17:44)
[2019-11-19] MEDS: ATORVASTATIN 40 MG TABLET PO (09:10)
[2019-11-19] MEDS: APIXABAN 5 MG TABLET PO ×2 (09:10→20:22)
[2019-11-19] MEDS: DULoxetine HCL 60 MG CAPSULE.DR PO ×2 (09:11→20:22)
[2019-11-19] MEDS: FAMOTIDINE 20 MG TABLET BY MOUTH ×2 (09:11→20:22)
--- NOTE | 2019-11-19 10:31 | RPD ---
INDIVIDUALIZED PLAN OF CARE FOR Caren Sainz Brief Synthesis of Pre-Admission Screen, Post-Admission Evaluation and Therapy Evaluations: The patient presents to rehab with right lower extremity critical limb ischemia. Comorbidities include amputation to right 4th finger, ischemia and gangrenous changes to the right 4th finger and right thumb demarcating, acute blood loss anemia, acute postoperative pain, leukocytosis, acute metabolic encephalopathy, urinary tract infection, Bipolar 1 disorder, depression, anxiety, hyperlipidemia, and lumbar degenerative disc disease. The complexity of the patient's medical management, nursing, and therapy needs require an inpatient rehab hospital stay with a physician-led interdisciplinary team approach. The patient?s needs will be best met in an intensive program vs. at a lower level of care. The patient requires physician services for medical oversight, management of post-op complications in the setting of present comorbidities, and pain management. Post-op complications have included acute blood loss anemia, leukocytosis, urinary tract infection, and acute postoperative pain. The patient requires nursing services for anticoagulation therapy, DVT prophylactics, infection protection, medication management and education, pressure relief, and wound care. Deficits include:ADLs, Balance, Endurance, Family Training/Education, Mobility, Pain Management, ROM, Safety, Strength, and Transfers. Free Lance Artist/Case Management for: Discharge Planning and Patient/Family Counseling Physical Therapy: 5 days per week for 90 minutes. Treatments may include: Therapeutic Exercise, Gait Training, Neuromuscular Re-education, Transfer Training, Community Reintegration, Bed Mobility, Patient/Family Education, Wheelchair Mobility Group Therapy/Concurrent Therapy Rationales: -Improve attention span during functional activities in a distracted environment. -Enhance problem solving and/or adequate judgment skills during functional activities in a distracted environment. -Promote increased safety awareness in a distracted environment to reduce fall risk with functional tasks, transfers, and ambulation to allow a more safe, self-sufficient return to the home environment. -Improve dynamic balance skills to promote safety and independence with functional activities in a distracted environment for maximum gain. Occupational Therapy: 5 days per week for 90 minutes. Treatments may include: Therapeutic Exercise, Therapeutic Activity, Cognitive Training, Self-Care Transfer Training, Community Reintegration, Home Management, Patient/Family Education, Wheelchair Mobility Training, Energy Conservation Training Group Therapy/Concurrent Therapy Rationales: -Allow therapist to observe and teach generalization and carry-over of skills learned in individual therapy. -Enhance problem solving and sequencing skills during therapeutic activities in a distracted environment. -Promote increased safety awareness in a realistic setting to reduce fall risk with functional tasks due to visual and verbal distractions. -Increase functional level with ADLs, ADL transfers and use of adaptive equipment through therapeutic activities with others while promoting safety to allow a more safe, self-sufficient return home. Medical Prognosis: Good Anticipated Length of Stay: 7 days Rehab Goals: Eating Goal: 06-Independent Oral Hygiene Goal: 06-Independent Toileting Hygiene Goal: 06-Independent Shower/Bathe Self Goal: 06-Independent Upper Body Dressing Goal: 06-Independent Lower Body Dressing Goal: 06-Independent Putting On/Taking Off Footwear Goal: 06-Independent Rolling Left and Right Goal: 06-Independent Sit to Lying Goal: 06-Independent Lying to Sitting on Side of Bed Goal: 06-Independent Sit to Stand Goal: 06-Independent Chair/Ycz-ly-Hgpmm Transfer Goal: 06-Independent Toilet Transfer Goal: 06-Independent Car Transfer Goal: 06-Independent Walk 10' Goal: 06-Independent Walk 50' wi
--- NOTE | 2019-11-19 11:56 | WPDNEURORHBP ---
Subjective Date/time seen: seen on 11/18/19at noon documenting today Review of Systems Review of Systems: All systems reviewed & are unremarkable except as noted in HPI and below Functional Status Ambulation Ability Ability to Ambulate 10 Feet: Contact Guard Ambulation Assistive Devices: Walker, Standard Transfers Ability Ability to Transfer In/Out of Chair: Minimum Assistance X 1 Exam Const: General: cooperative, comfortable and well developed Nutritional Appearance: average body habitus Orientation/consciousness: patient oriented x3 Limitations: no limitations HENMT: Head: normal to inspection Ears: hearing grossly normal bilaterally General nose exam: Normal external nose present and No nasal discharge present Face and sinus: normal facial exam Mouth: Yes Normal oral and palatal mucosa present Eyes: General: appearance normal, both eyes and all related structures Neck: Neck: full ROM Resp: Effort & Inspection: normal respiratory effort and able to speak in complete sentences Cardio: Rate: regular rate Rhythm: regular rhythm Skin: General skin exam: no rashes or lesions noted, crusts and scars Lesions: lesion noted Wounds: amputation site (ok) Neuro: General: patient oriented x3 and moves all extremities Cranial nerves: Yes CN's II-XII intact bilaterally, Yes Equal, round and reactive pupils present, Yes Nystagmus not present, Yes Midline tongue present, Yes Normal hearing present and Yes Ability to bilaterally elevate shoulders present Cognition (Neuro): normal cognition Speech: normal speech Gait exam (Neuro): Unable to assess gait Motor exam (neuro): 5/5 motor strength present throughout Sensory Exam: Sensory deficit (Neuro) Extrem: General: normal to inspection and amputation noted Right upper extremity: normal to inspection and Extremity exam: right hand (perfosion) abnormal ROM of finger, no swelling and ecchymosis Left upper extremity: full ROM Right lower extremity: full ROM Psych: Appearance: grossly normal Speech and movement: Normal speech and movement present Affect: normal affect Attitude: cooperative Thought process: Normal thought process present Thought content: Yes Normal thought content present Insight: Fair insight present (Psych) Judgement: Fair judgement present (Psych) Objective Data Vital Signs Vital Signs: Vital Signs - 24 hr 11/18/19 14:00 11/18/19 20:15 11/19/19 06:00 Temperature 36.3 C L 36.4 C L 36.3 C L Pulse Rate 60 80 86 Respiratory Rate 20 18 18 Blood Pressure 94/60 L 106/52 L 118/63 Pulse Oximetry 98 100 96 Intake/Output Intake/Output: Intake & Output 11/16/19 11/17/19 11/18/19 11/19/19 23:59 23:59 23:59 23:59 Intake Total 720 560 240 Balance 720 560 240 Meds/Results Medications: Active Medications Generic Name Dose Route Start Last Admin Trade Name Freq PRN Reason Stop Dose Admin Acetaminophen 650 mg 11/16/19 18:46 Tylenol Tablet PO Q4H PRN Headache Hydrocodone Bitart/Acetaminophen 2 tab 11/18/19 12:01 11/19/19 09:11 [place] 5-325 Mg PO 2 tab Q6H PRN Administration Pain Apixaban 5 mg 11/16/19 21:00 11/19/19 09:10 Eliquis PO 5 mg Q12HR FRANCISCO Administration Atorvastatin Calcium 40 mg 11/17/19 09:00 11/19/19 09:10 Lipitor PO 40 mg DAILY FRANCISCO Administration Clonazepam 1 mg 11/17/19 09:00 11/19/19 09:10 Klonopin Tablet PO 1 mg TID FRANCISCO Administration Duloxetine HCl 60 mg 11/16/19 21:00 11/19/19 09:11 Cymbalta PO 60 mg Q12HR FRANCISCO Administration Famotidine 20 mg 11/16/19 21:00 11/19/19 09:11 Pepcid BY MOUTH 20 mg Q12HR FRANCISCO Administration Nitroglycerin 0.5 inch 11/17/19 18:00 11/19/19 06:10 Nitroglycerin Oint 1 Inch TRANSDERM 0.5 inch Q6HR FRANCISCO Administration Quetiapine Fumarate 50 mg 11/17/19 06:00 11/19/19 06:10 Seroquel PO 50 mg BID@0600,1400 FRANCISCO Administration Quetiapine Fumarate 300 mg 11/16/19 21:00 11/18/19 20:32 Seroquel
[2019-11-19 13:27] VITALS: BMI 30.7
--- NOTE | 2019-11-19 13:47 | PCNSR ---
On 11/19/19, the student, [Mikal Salcedo ], provided care and completed [facility] documentation on this patient. I have reviewed the student's documentation and agree with the findings.
[2019-11-19 14:00] VITALS: BP 111/61; PULSE 84; RESP 20; TEMP 36.1; O2SAT 96
[2019-11-19] MEDS: polyethylene glycoL 3350 17 GM POWD.PACK PO (20:22)
[2019-11-19] MEDS: SENNA/DOCUSATE SODIUM TABLET 2 TAB PO (20:22)
[2019-11-19] MEDS: QUEtiapine FUMARATE 100 MG TABLET 300 MG PO (20:22)
[2019-11-19 21:46] VITALS: BP 127/47; PULSE 102; RESP 18; TEMP 35.2; O2SAT 92
[2019-11-20] MEDS: NITROGLYCERIN OINTMENT 1 INCH DOSE 0.5 INCH TRANSDERM ×5 (00:21→23:57)
[2019-11-20 06:00] VITALS: BP 107/39; PULSE 83; RESP 18; TEMP 35.4; O2SAT 95
[2019-11-20] MEDS: QUEtiapine FUMARATE 25 MG TABLET 50 MG PO ×2 (06:15→14:27)
[2019-11-20] MEDS: APIXABAN 5 MG TABLET PO ×2 (08:01→20:09)
[2019-11-20] MEDS: ATORVASTATIN 40 MG TABLET PO (08:01)
[2019-11-20] MEDS: CHOLECALCIFEROL 1,000 UNIT TABLET 1000 UNITS PO (08:01)
[2019-11-20] MEDS: DULoxetine HCL 60 MG CAPSULE.DR PO ×2 (08:02→20:09)
[2019-11-20] MEDS: FAMOTIDINE 20 MG TABLET BY MOUTH ×2 (08:02→20:09)
[2019-11-20] MEDS: clonazePAM 0.5 MG TABLET 1 MG PO ×3 (08:02→17:13)
[2019-11-20] MEDS: SENNA/DOCUSATE SODIUM TABLET 2 TAB PO ×2 (08:02→20:11)
--- NOTE | 2019-11-20 11:06 | PCPTNOTE ---
Contacted Dr. Escoto's office to clarify weightbearing status for right arm. MD orders are no weightbearing restrictions. Kati Du PT
--- NOTE | 2019-11-20 11:22 | PCPTNOTE ---
Caren Sainz was evaluated for a standard walker on 11/20/2019 by this physical therapist. The standard walker will resolve patient's mobility limitations and will be used for ADL's within the home. The patient can safely use the standard walker. ?The standard walker will resolve the patient?s mobility deficits, including transfers/ADL's/gait. Kati Du PT
--- NOTE | 2019-11-20 11:24 | PCPTNOTE ---
Kati Du PT completed an inpatient rehab wheelchair evaluation on Caren Sainz on 11/20/2019. The patient is unable to safely and independently ambulate household distances due to their current impairments. Their diagnosis is R AKA and right 4th digit amputation, and their impairments include decreased strength, decreased endurance, decreased range of motion, decreased balance, lower extremity weakness, and ataxia. Caren's weight bearing status is [id number] on the right lower leg. The patient demonstrates significant functional mobility limitations that impair their ability to participate in mobility-related activities of daily living (MRADLs), including toileting, feeding, dressing, grooming, and bathing in the customary locations in the home. These limitations cannot be sufficiently resolved by the use of an appropriately fitted cane or walker. It is recommended that the patient utilize a wheelchair for functional mobility within the home in order to facilitate optimal safety, independence and participation in all MRADL's and adequately access their home environment on a regular basis. The patient's home provides adequate access between rooms, maneuvering space, and surfaces to accommodate the recommended wheelchair. The use of a wheelchair for functional mobility is strongly recommended and the patient is receptive to using the wheelchair. The use of this wheelchair will significantly improve the patient's ability to participate in MRADLS and the patient will use it on a regular basis in the home. This will facilitate optimal safety, independence, and participation. The patient has demonstrated sufficient physical and mental capabilities needed to safely propel a manual wheelchair that is provided in the home during a typical day. Recommended Wheelchair Frame: standard Recommended Wheelchair Size: 20 W x 18 D Recommended Wheelchair Cushion: standard Wheelchair Leg Recommendations: detachable legrests - Anti-tippers are recommended due to patient demonstrating increased risk for falls. They would benefit from anti-tippers with added safety and stabilization. Kati Du PT ___11/20/19 Evaluating Therapist Date I agree with and certify that the above recommendation is medically necessary. Referring Physician Date I agree with and certify that the above recommendation is medically necessary. Referring Physician Date
--- NOTE | 2019-11-20 12:31 | WPDNEURORHBP ---
Subjective Date/time seen: 11/20/19 12:31 Interval history: this 49-year-old woman is here after having had a right olhzs-nor-nufz amputation for severe peripheral vascular disease after having had an attempt for revascularization it was followed by the removal of digits in her right hand for which we consulted our plastic surgeon who is notes were reviewed the patient is doing fairly well she is nonweightbearing of the right arm because of the recent amputation of the fingers of the right hand as documented by Dr. Echeverria my partner and also the plastic surgeon She denies any headache nausea vomiting chest pain shortness of breath the encephalopathy she has had has slowly almost resolved Review of Systems Review of Systems: All systems reviewed & are unremarkable except as noted in HPI and below Functional Status Ambulation Ability Ability to Ambulate 10 Feet: Contact Guard Ambulation Assistive Devices: Walker, Standard Transfers Ability Ability to Transfer In/Out of Chair: Minimum Assistance X 1 Exam Const: General: comfortable and no acute distress HENMT: General nose exam: Normal nares present Mouth: Yes moist mucous membranes Eyes: General: appearance normal, both eyes and all related structures Neck: Neck: supple and no JVD Resp: Effort & Inspection: normal respiratory effort Auscultation: clear to auscultation bilaterally Cardio: Rate: regular rate Rhythm: regular rhythm GI: GI Palp: Yes Soft to palpation Auscultation: normal bowel sounds Skin: General skin exam: normal color and no rashes or lesions noted Neuro: Other: patient is awake and alert well oriented not any distress but did she have pain in her right hand and also the pain at the site of the right above the knee amputation the ischemic changes in the fingers as have been noted are quite stable Extrem: Other: eschar and ischemic changes in the right fingers as mentioned above and likewise right above the knee amputation which are stable Psych: Mental Status: mental status grossly normal Objective Data Vital Signs Vital Signs: Vital Signs - 24 hr 11/19/19 14:00 11/19/19 21:46 11/20/19 06:00 Temperature 36.1 C L 35.2 C L 35.4 C L Pulse Rate 84 102 H 83 Respiratory Rate 20 18 18 Blood Pressure 111/61 127/47 L 107/39 L Pulse Oximetry 96 92 95 Intake/Output Intake/Output: Intake & Output 11/17/19 11/18/19 11/19/19 11/20/19 23:59 23:59 23:59 23:59 Intake Total 720 560 720 240 Balance 720 560 720 240 Meds/Results Medications: Active Medications Generic Name Dose Route Start Last Admin Trade Name Willie PRN Reason Stop Dose Admin Acetaminophen 650 mg 11/16/19 18:46 Tylenol Tablet PO Q4H PRN Headache Hydrocodone Bitart/Acetaminophen 2 tab 11/18/19 12:01 11/20/19 08:03 Levels 5-325 Mg PO 2 tab Q6H PRN Administration Pain Apixaban 5 mg 11/16/19 21:00 11/20/19 08:01 Eliquis PO 5 mg Q12HR FRANCISCO Administration Atorvastatin Calcium 40 mg 11/17/19 09:00 11/20/19 08:01 Lipitor PO 40 mg DAILY FRANCISCO Administration Clonazepam 1 mg 11/17/19 09:00 11/20/19 08:02 Klonopin Tablet PO 1 mg TID FRANCISCO Administration Duloxetine HCl 60 mg 11/16/19 21:00 11/20/19 08:02 Cymbalta PO 60 mg Q12HR FRANCISCO Administration Famotidine 20 mg 11/16/19 21:00 11/20/19 08:02 Pepcid BY MOUTH 20 mg Q12HR FRANCISCO Administration Nitroglycerin 0.5 inch 11/17/19 18:00 11/20/19 06:15 Nitroglycerin Oint 1 Inch TRANSDERM 0.5 inch Q6HR FRANCISCO Administration Polyethylene Glycol 17 gm 11/19/19 09:00 11/20/19 08:06 Miralax PO Not Given QAM FRANCISCO Quetiapine Fumarate 50 mg 11/17/19 06:00 11/20/19 06:15 Seroquel PO 50 mg BID@0600,1400 FRANCISCO Administration Quetiapine Fumarate 300 mg 11/16/19 21:00 11/19/19 20:22 Seroquel PO 300 mg HS FRANCISCO Administration Senna/Docusate Sodium 2 tab 11/19/19 21:00 11/20/19 08:02 Senokot S Tablet PO 2 tab Q12H FRANCISCO A
[2019-11-20 14:00] VITALS: BP 93/73; PULSE 82; RESP 18; TEMP 36.7; O2SAT 97
[2019-11-20] MEDS: QUEtiapine FUMARATE 100 MG TABLET 300 MG PO (20:11)
[2019-11-20 20:34] VITALS: BP 103/46; PULSE 83; RESP 18; TEMP 36.3; O2SAT 99
[2019-11-21] MEDS: NITROGLYCERIN OINTMENT 1 INCH DOSE 0.5 INCH TRANSDERM ×3 (05:32→17:35)
[2019-11-21] MEDS: QUEtiapine FUMARATE 25 MG TABLET 50 MG PO ×2 (05:32→14:35)
[2019-11-21 05:45] VITALS: BP 103/48; PULSE 81; RESP 18; TEMP 35.9; O2SAT 97
[2019-11-21] MEDS: clonazePAM 0.5 MG TABLET 1 MG PO ×3 (08:36→17:34)
[2019-11-21] MEDS: ATORVASTATIN 40 MG TABLET PO (08:36)
[2019-11-21] MEDS: APIXABAN 5 MG TABLET PO ×2 (08:36→20:20)
[2019-11-21] MEDS: SENNA/DOCUSATE SODIUM TABLET 2 TAB PO ×2 (08:37→20:20)
[2019-11-21] MEDS: FAMOTIDINE 20 MG TABLET BY MOUTH ×2 (08:37→20:19)
[2019-11-21] MEDS: CHOLECALCIFEROL 1,000 UNIT TABLET 1000 UNITS PO (08:37)
[2019-11-21] MEDS: DULoxetine HCL 60 MG CAPSULE.DR PO ×2 (08:37→20:20)
[2019-11-21 14:00] VITALS: BP 94/58; PULSE 86; RESP 16; TEMP 35.7; O2SAT 97
--- NOTE | 2019-11-21 17:03 | WPDNEURORHBP ---
Subjective Date/time seen: 11/21/19 17:03 Interval history: this 49-year-old woman is here after having had the right above the knee amputation and also has underlying peripheral vascular disease along with the evidence of ischemia of the right hand but no sign of infectious process is noted has been seen by the plastic surgeon here the patient is happy with the care she is receiving discharge planning is in progress in the next few days she will need the wheelchair standard walker shower seat with the back and the raised toilet seat She denies any headache nausea vomiting chest pain shortness of breath fever chills sore throat Review of Systems Review of Systems: All systems reviewed & are unremarkable except as noted in HPI and below Functional Status Ambulation Ability Ability to Ambulate 10 Feet: Contact Guard Ambulation Assistive Devices: Walker, Standard Transfers Ability Ability to Transfer In/Out of Chair: Minimum Assistance X 1 Exam Const: General: comfortable and no acute distress HENMT: General nose exam: Normal nares present Mouth: Yes moist mucous membranes Eyes: General: appearance normal, both eyes and all related structures Neck: Neck: supple and no JVD Resp: Effort & Inspection: normal respiratory effort Auscultation: clear to auscultation bilaterally Cardio: Rate: regular rate Rhythm: regular rhythm GI: GI Palp: Yes Soft to palpation Auscultation: normal bowel sounds Skin: General skin exam: normal color and no rashes or lesions noted Neuro: Other: patient is awake and alert well oriented time place and person evidence of peripheral vascular disease in the neuropathy is noted along with the ski me a which is stable of the right fingers Extrem: Other: the right fingers are well dressed no sign of infection is noted The right above the knee amputation seems to be clean Psych: Mental Status: mental status grossly normal Objective Data Vital Signs Vital Signs: Vital Signs - 24 hr 11/20/19 20:34 11/21/19 05:45 11/21/19 14:00 Temperature 36.3 C L 35.9 C L 35.7 C L Pulse Rate 83 81 86 Respiratory Rate 18 18 16 Blood Pressure 103/46 L 103/48 L 94/58 L Pulse Oximetry 99 97 97 Intake/Output Intake/Output: Intake & Output 11/18/19 11/19/19 11/20/19 11/21/19 23:59 23:59 23:59 23:59 Intake Total 560 720 720 220 Balance 560 720 720 220 Meds/Results Medications: Active Medications Generic Name Dose Route Start Last Admin Trade Name Freq PRN Reason Stop Dose Admin Acetaminophen 650 mg 11/16/19 18:46 Tylenol Tablet PO Q4H PRN Headache Hydrocodone Bitart/Acetaminophen 2 tab 11/18/19 12:01 11/21/19 11:20 [place] 5-325 Mg PO 2 tab Q6H PRN Administration Pain Apixaban 5 mg 11/16/19 21:00 11/21/19 08:36 Eliquis PO 5 mg Q12HR [place] Administration Atorvastatin Calcium 40 mg 11/17/19 09:00 11/21/19 08:36 Lipitor PO 40 mg DAILY [facility] Administration Clonazepam 1 mg 11/17/19 09:00 11/21/19 12:06 Klonopin Tablet PO 1 mg TID [facility] Administration Duloxetine HCl 60 mg 11/16/19 21:00 11/21/19 08:37 Cymbalta PO 60 mg Q12HR [facility] Administration Famotidine 20 mg 11/16/19 21:00 11/21/19 08:37 Pepcid BY MOUTH 20 mg Q12HR [facility] Administration Nitroglycerin 0.5 inch 11/17/19 18:00 11/21/19 12:07 Nitroglycerin Oint 1 Inch TRANSDERM 0.5 inch Q6HR [facility] Administration Polyethylene Glycol 17 gm 11/19/19 09:00 11/21/19 08:37 Miralax PO Not Given QAM [facility] Quetiapine Fumarate 50 mg 11/17/19 06:00 11/21/19 14:35 Seroquel PO 50 mg BID@0600,1400 [place] Administration Quetiapine Fumarate 300 mg 11/16/19 21:00 11/20/19 20:11 Seroquel PO 300 mg HS [facility] Administration Senna/Docusate Sodium 2 tab 11/19/19 21:00 11/21/19 08:37 Senokot S Tablet PO 2 tab Q12H [facility] Administration Vitamin D 1,000 unit 11/17/19 09:00 11/21/19 08:37 Vitamin D PO 1,000 unit DAILY [facility] Administ
[2019-11-21] MEDS: QUEtiapine FUMARATE 100 MG TABLET 300 MG PO (20:19)
[2019-11-21 20:43] VITALS: BP 111/46; PULSE 77; RESP 18; TEMP 36.3; O2SAT 96
[2019-11-22] MEDS: NITROGLYCERIN OINTMENT 1 INCH DOSE 0.5 INCH TRANSDERM ×4 (00:21→17:04)
[2019-11-22 04:52] VITALS: BP 95/30; PULSE 63; RESP 18; TEMP 35.7; O2SAT 93
[2019-11-22] MEDS: QUEtiapine FUMARATE 25 MG TABLET 50 MG PO ×2 (09:25→14:03)
[2019-11-22] MEDS: DULoxetine HCL 60 MG CAPSULE.DR PO ×2 (09:26→20:04)
[2019-11-22] MEDS: ATORVASTATIN 40 MG TABLET PO (09:26)
[2019-11-22] MEDS: APIXABAN 5 MG TABLET PO ×2 (09:26→20:04)
[2019-11-22] MEDS: CHOLECALCIFEROL 1,000 UNIT TABLET 1000 UNITS PO (09:26)
[2019-11-22] MEDS: SENNA/DOCUSATE SODIUM TABLET 2 TAB PO ×2 (09:26→20:04)
[2019-11-22] MEDS: polyethylene glycoL 3350 17 GM POWD.PACK PO (09:27)
[2019-11-22] MEDS: FAMOTIDINE 20 MG TABLET BY MOUTH ×2 (09:27→20:04)
[2019-11-22] MEDS: clonazePAM 0.5 MG TABLET 1 MG PO ×3 (09:30→17:04)
[2019-11-22 14:00] VITALS: BP 117/63; PULSE 82; RESP 20; TEMP 36.9; O2SAT 99
--- NOTE | 2019-11-22 16:52 | P.PN_ITS ---
Exam Narrative: Exam Narrative: Caren is reported to be very active at PT and has made progress. Her hand keeps her from grasping support devices well. Discharge is planned for tomorrow. She sees Dr Stacy in a few days for suture removal. The amputated right ring finger appears to be healing well. The palmar stump flap remains slightly dark. The eschars have changed little in the few days since her return here. Nitro Bid seems to burn some she says. It has softened the larger eschar. I would remain hopeful for its positive effect toward sloughing the eschar in 1-2 months and in view of her recent angioplasty. Surgical intervention is not a guarantee of pain relief and should be carefully considered in a person of her age (stiffening of any related joints) and with her vascular history and and smoking history. Digital angiography ought to be considered beforehand. Not out of the question, but she is not in immediate need. I would be happy to follow her in my office to monitor this. Objective Data Vital Signs Vital Signs: Vital Signs - 24 hr 11/21/19 20:43 11/22/19 04:52 11/22/19 14:00 Temperature 36.3 C L 35.7 C L 36.9 C Pulse Rate 77 63 82 Respiratory Rate 18 18 20 Blood Pressure 111/46 L 95/30 L 117/63 Pulse Oximetry 96 93 99 Intake/Output Intake/Output: Intake & Output 11/19/19 11/20/19 11/21/19 11/22/19 23:59 23:59 23:59 23:59 Intake Total 720 720 420 480 Balance 720 720 420 480 Meds/Results Medications: Active Medications Generic Name Dose Route Start Last Admin Trade Name Freq PRN Reason Stop Dose Admin Acetaminophen 650 mg 11/16/19 18:46 Tylenol Tablet PO Q4H PRN Headache Hydrocodone Bitart/Acetaminophen 2 tab 11/18/19 12:01 11/22/19 14:03 [place] 5-325 Mg PO 2 tab Q6H PRN Administration Pain Apixaban 5 mg 11/16/19 21:00 11/22/19 09:26 Eliquis PO 5 mg Q12HR [place] Administration Atorvastatin Calcium 40 mg 11/17/19 09:00 11/22/19 09:26 Lipitor PO 40 mg DAILY [place] Administration Clonazepam 1 mg 11/17/19 09:00 11/22/19 12:31 Klonopin Tablet PO 1 mg TID [place] Administration Duloxetine HCl 60 mg 11/16/19 21:00 11/22/19 09:26 Cymbalta PO 60 mg Q12HR [place] Administration Famotidine 20 mg 11/16/19 21:00 11/22/19 09:27 Pepcid BY MOUTH 20 mg Q12HR [place] Administration Nitroglycerin 0.5 inch 11/17/19 18:00 11/22/19 12:31 Nitroglycerin Oint 1 Inch TRANSDERM 0.5 inch Q6HR [place] Administration Polyethylene Glycol 17 gm 11/19/19 09:00 11/22/19 09:27 Miralax PO 17 gm QAM [place] Administration Pregabalin 50 mg 11/22/19 21:00 Lyrica PO Q12HR [place] Quetiapine Fumarate 50 mg 11/17/19 06:00 11/22/19 14:03 Seroquel PO 50 mg BID@0600,1400 [place] Administration Quetiapine Fumarate 300 mg 11/16/19 21:00 11/21/19 20:19 Seroquel PO 300 mg HS [place] Administration Senna/Docusate Sodium 2 tab 11/19/19 21:00 11/22/19 09:26 Senokot S Tablet PO 2 tab Q12H [place] Administration Vitamin D 1,000 unit 11/17/19 09:00 11/22/19 09:26 Vitamin D PO 1,000 unit DAILY [facility] Administration
[2019-11-22] MEDS: QUEtiapine FUMARATE 100 MG TABLET 300 MG PO (20:04)
[2019-11-22 22:00] VITALS: BP 97/52; PULSE 76; RESP 18; TEMP 36; O2SAT 97
[2019-11-23] MEDS: NITROGLYCERIN OINTMENT 1 INCH DOSE 0.5 INCH TRANSDERM ×5 (00:14→23:37)
[2019-11-23 06:00] VITALS: BP 109/55; PULSE 75; RESP 20; TEMP 36.1; O2SAT 95
[2019-11-23] MEDS: QUEtiapine FUMARATE 25 MG TABLET 50 MG PO ×2 (06:24→13:02)
[2019-11-23] MEDS: FAMOTIDINE 20 MG TABLET BY MOUTH ×2 (08:17→20:25)
[2019-11-23] MEDS: CHOLECALCIFEROL 1,000 UNIT TABLET 1000 UNITS PO (08:17)
[2019-11-23] MEDS: ATORVASTATIN 40 MG TABLET PO (08:17)
[2019-11-23] MEDS: DULoxetine HCL 60 MG CAPSULE.DR PO ×2 (08:17→20:26)
[2019-11-23] MEDS: APIXABAN 5 MG TABLET PO ×2 (08:17→20:25)
[2019-11-23] MEDS: clonazePAM 0.5 MG TABLET 1 MG PO ×3 (08:20→17:20)
[2019-11-23 14:00] VITALS: BP 113/60; PULSE 79; RESP 16; TEMP 36.5; O2SAT 95
--- NOTE | 2019-11-23 15:22 | WPDNEURORHBP ---
Subjective Date/time seen: 11/23/19 15:22 Interval history: this 49-year-old woman is here post surgery after having had a right AKA and also it was followed by the vascularization of the right upper extremity the incisions are clean and healthy in supposed to be discharged tomorrow she is doing fairly well and made excellent progress to be able to sit home with the home health For the neuropathic pain which seems to be under control she does not want any gabapentin or Lyrica and as long as she is able to tolerate her pain fairly well which she is I do not thing I have to initiate an other drugs for this reason Review of Systems Review of Systems: All systems reviewed & are unremarkable except as noted in HPI and below Functional Status Ambulation Ability Ability to Ambulate 10 Feet: Standby Assistance Ambulation Assistive Devices: Walker, Standard Transfers Ability Ability to Transfer In/Out of Chair: Minimum Assistance X 1 Exam Const: General: comfortable and no acute distress HENMT: General nose exam: Normal nares present Mouth: Yes moist mucous membranes Eyes: General: appearance normal, both eyes and all related structures Neck: Neck: supple and no JVD Resp: Effort & Inspection: normal respiratory effort Auscultation: clear to auscultation bilaterally Cardio: Rate: regular rate Rhythm: regular rhythm GI: GI Palp: Yes Soft to palpation Auscultation: normal bowel sounds Skin: General skin exam: normal color and no rashes or lesions noted Neuro: Other: patient awake alert well oriented time place and person she has improved overall significantly with her underlying underlying evidence of the peripheral vascular disease and the peripheral neuropathy Extrem: Other: right AKA and the vascularization of the right upper extremity incisions are clean a little asked her of the right thumb is also seems to be healing well no sign of infectious processes noted Psych: Mental Status: mental status grossly normal Objective Data Vital Signs Vital Signs: Vital Signs - 24 hr 11/22/19 22:00 11/23/19 06:00 11/23/19 14:00 Temperature 36.0 C L 36.1 C L 36.5 C Pulse Rate 76 75 79 Respiratory Rate 18 20 16 Blood Pressure 97/52 L 109/55 L 113/60 Pulse Oximetry 97 95 95 Intake/Output Intake/Output: Intake & Output 11/20/19 11/21/19 11/22/19 11/23/19 23:59 23:59 23:59 23:59 Intake Total 720 420 720 240 Balance 720 420 720 240 Meds/Results Medications: Active Medications Generic Name Dose Route Start Last Admin Trade Name Freq PRN Reason Stop Dose Admin Acetaminophen 650 mg 11/16/19 18:46 Tylenol Tablet PO Q4H PRN Headache Hydrocodone Bitart/Acetaminophen 2 tab 11/18/19 12:01 11/23/19 11:12 [place] 5-325 Mg PO 2 tab Q6H PRN Administration Pain Apixaban 5 mg 11/16/19 21:00 11/23/19 08:17 Eliquis PO 5 mg Q12HR [place] Administration Atorvastatin Calcium 40 mg 11/17/19 09:00 11/23/19 08:17 Lipitor PO 40 mg DAILY [place] Administration Clonazepam 1 mg 11/17/19 09:00 11/23/19 13:02 Klonopin Tablet PO 1 mg TID [place] Administration Duloxetine HCl 60 mg 11/16/19 21:00 11/23/19 08:17 Cymbalta PO 60 mg Q12HR [place] Administration Famotidine 20 mg 11/16/19 21:00 11/23/19 08:17 Pepcid BY MOUTH 20 mg Q12HR [place] Administration Nitroglycerin 0.5 inch 11/17/19 18:00 11/23/19 11:14 Nitroglycerin Oint 1 Inch TRANSDERM 0.5 inch Q6HR [place] Administration Polyethylene Glycol 17 gm 11/19/19 09:00 11/23/19 08:18 Miralax PO Not Given QAM [place] Quetiapine Fumarate 50 mg 11/17/19 06:00 11/23/19 13:02 Seroquel PO 50 mg BID@0600,1400 [place] Administration Quetiapine Fumarate 300 mg 11/16/19 21:00 11/22/19 20:04 Seroquel PO 300 mg HS [place] Administration Senna/Docusate Sodium 2 tab 11/19/19 21:00 11/23/19 08:18 Senokot S Tablet PO Not Given Q12H [facility] Vitamin D 1,000 unit 11/17/19 09:00 11/23/19 08:17
[2019-11-23] MEDS: SENNA/DOCUSATE SODIUM TABLET 2 TAB PO (20:25)
[2019-11-23] MEDS: QUEtiapine FUMARATE 100 MG TABLET 300 MG PO (20:26)
[2019-11-23 22:00] VITALS: BP 107/65; PULSE 78; RESP 20; TEMP 36.3; O2SAT 95
[2019-11-24] MEDS: NITROGLYCERIN OINTMENT 1 INCH DOSE 0.5 INCH TRANSDERM (05:30)
[2019-11-24 05:34] LABS: Basophils Absolute Auto 0.1 K/mm3 (0.0-0.1); Basophils Percent Auto 0.8 % (0.2-1.2); Eosinophils Absolute Auto 0.4 K/mm3 (0-0.3); Eosinophils Percent Auto 5.7 % (0-4.4); Hematocrit 32.7 % (37.0-47.0); Hemoglobin 10.4 g/dL (12.0-15.0); Immature Granulocyte Absolute 0.02 K/mm3 (0.00-0.031); Immature Granulocyte Percent A 0.3 % (0-0.5); Lymphocytes Absolute Auto 2.94 K/mm3 (0.9-3.2); Mean Corpuscular HGB Conc 31.8 g/dl (32-36); Mean Corpuscular Hemoglobin 28.6 pg (26-34); Mean Corpuscular Volume 89.8 fl (80-100); Mean Platelet Volume 9.7 fl (7.4-10.4); Monocytes Absolute Auto 0.4 K/mm3 (0.1-0.6); Monocytes Percent Auto 6.9 % (2.6-8.5); Neutrophils Absolute Auto 2.3 K/mm3 (1.3-6.7); Neutrophils Percent Auto 38.3 % (45.5-73.1); Platelet Count Result 298 k/mm3 (150-375); Red Blood Count 3.64 M/mm3 (4.2-5.4); Red Cell Distribution Width 13.5 % (11.5-14.5); White Blood Count 6.1 K/mm3 (4.5-10.0)
[2019-11-24] MEDS: QUEtiapine FUMARATE 25 MG TABLET 50 MG PO (05:37)
[2019-11-24 05:50] LABS: Anion Gap 10 mmol/L (8-16); Blood Urea Nitrogen 13 mg/dL (7-17); Calcium 9.6 mg/dL (8.4-10.2); Carbon Dioxide 27 mmol/L (22-30); Chloride 99 mmol/L (98-107); Estimated CRCL calculation 70 ml/min; Estimated Glomerular Filt Rate > 60; Glucose 98 mg/dL (65-105); Potassium 3.8 mmol/L (3.4-5.0); Sodium 136 mmol/L (137-145)
[2019-11-24 06:00] VITALS: BP 111/50; PULSE 64; RESP 17; TEMP 36.1; O2SAT 97
[2019-11-24 08:00] VITALS: PULSE 64; RESP 17; O2SAT 97
[2019-11-24] MEDS: FAMOTIDINE 20 MG TABLET BY MOUTH (09:19)
[2019-11-24] MEDS: clonazePAM 0.5 MG TABLET 1 MG PO (09:19)
[2019-11-24] MEDS: DULoxetine HCL 60 MG CAPSULE.DR PO (09:19)
[2019-11-24] MEDS: CHOLECALCIFEROL 1,000 UNIT TABLET 1000 UNITS PO (09:19)
[2019-11-24] MEDS: ATORVASTATIN 40 MG TABLET PO (09:20)
[2019-11-24] MEDS: APIXABAN 5 MG TABLET PO (09:21)
--- NOTE | 2019-11-28 14:22 | PM.DS ---
DS: Admitting Diagnosis Admitting Diagnosis Admitting Diagnosis: Other disorder of circulatory system DS: Discharge Diagnosis Discharge Diagnosis (1) Anxiety and depression: Code(s): F41.9 - Anxiety disorder, unspecified; F32.9 - Major depressive disorder, single episode, unspecified Status: Chronic (2) Peripheral neuropathy: Code(s): G62.9 - Polyneuropathy, unspecified Status: Chronic (3) Hyperlipidemia: Code(s): E78.5 - Hyperlipidemia, unspecified Status: Chronic (4) Peripheral artery disease: Code(s): I73.9 - Peripheral vascular disease, unspecified Status: Acute (5) Chronic low back pain: Code(s): M54.5 - Low back pain; G89.29 - Other chronic pain Status: Acute (6) Migraines: Code(s): G43.909 - Migraine, unspecified, not intractable, without status migrainosus Status: Acute (7) Peripheral vascular disease: Code(s): I73.9 - Peripheral vascular disease, unspecified Status: Acute (8) Tobacco abuse: Code(s): Z72.0 - Tobacco use Status: Acute (9) Injury of left ankle: Code(s): S99.912A - Unspecified injury of left ankle, initial encounter Status: Acute (10) Injury of left upper arm: Code(s): S49.92XA - Unspecified injury of left shoulder and upper arm, initial encounter Status: Acute (11) DVT prophylaxis: Code(s): Z29.9 - Encounter for prophylactic measures, unspecified Status: Acute (12) Bipolar disorder: Code(s): F31.9 - Bipolar disorder, unspecified Status: Acute (13) Critical ischemia of extremity with history of revascularization of same extremity: Onset Date: Unknown Code(s): I99.8 - Other disorder of circulatory system; Z95.9 - Presence of cardiac and vascular implant and graft, unspecified Status: Acute (14) History of aorto-femoral bypass: Code(s): Z95.828 - Presence of other vascular implants and grafts Status: Acute (15) History of right above knee amputation: Code(s): Z89.611 - Acquired absence of right leg above knee Status: Acute DS: Summary Hospital Course Reason for hospitalization: the patient was here few days prior to this admission when she was sent to the vascular surgeon for the right hand ischemia for which she underwent the ring finger amputation and came to us for further rehab after having had the initial right [id number] amputation she was seen by the plastic surgeon for the ischemia of the right upper extremity and the revascularization as noted in the initial H and P performed by my partner Dr. Echeverria she was to follow up with the surgeon in the next few days after the discharge she did will rehab had received the following medical management PT OT and gait training was able to achieve the following independent measures Hospital Course: eating independent, oral hygiene independent, toileting independent, bathing independent, upper body dressing independent, lower body dressing independent, footwear independent, a rolling in bed independent, sitting to lying independent, lying to sitting independent, sit to stand independent, chair transfers independent, toilet transfers independent, car transfers independent, walking 10 feet supervision, 50 feet with 2 turns patient was unable to likewise she was able to walk she was not able to walk 150 feet, walking 10 feet uneven surfaces supervision, carb are step supervision curb or step supervision, 4 steps patient was unable to 12 steps not tested became object independent wheelchair 50 feet independent wheelchair 150 feet independent patient was sent home with home health Time Spent with Patient Time attestation: Total time spent providing and/or coordinating discharge services: Exam Const: General: comfortable and no acute distress HENMT: General nose exam: Normal nares present Mouth: Yes dry mucous membranes Eyes: General: appearance normal, both eyes a
== END 2019-11-24 10:39 | disposition home health service (06) | DRG 561 ==
PROVIDERS: Admitting Provider Psychiatry & Neurology Neurology; PCP Internal Medicine; Visit Provider Psychiatry & Neurology Neurology
DX: Z47.81 Encounter for orthopedic aftercare following surgical amputation (principal); I99.8 Other disorder of circulatory system; Z89.611 Acquired absence of right leg above knee; Z89.021 Acquired absence of right finger(s); E78.5 Hyperlipidemia, unspecified; F31.9 Bipolar disorder, unspecified; F12.90 Cannabis use, unspecified, uncomplicated; G62.9 Polyneuropathy, unspecified; G89.29 Other chronic pain; G43.909 Migraine, unspecified, not intractable, without status migrainosus; I73.9 Peripheral vascular disease, unspecified; M51.36 Other intervertebral disc degeneration, lumbar region; M54.5 Low back pain; R60.0 Localized edema; Z87.891 Personal history of nicotine dependence
CPT/HCPCS: 36415; 80048; 85025; 97110; 97116; 97162; 97166; 97530; 97535; 97542; A9270